=== PATIENT | male | born 1960 | race Two or more races ===

== ENCOUNTER 2018-09-29 08:24 | Emergency (ER) | payer OTHER ==
[~2018-09-29] VITALS: Ht 177.8 cm; Wt 117.9 kg
[2018-09-29 08:35] VITALS: Ht 177.8 cm; Wt 117.9 kg
[2018-09-29 09:26] LABS: PLATELET COUNT 152 x10^3mcL (130-400)
[2018-09-29 09:40] LABS: ALKALINE PHOSPHATASE 281 U/L (46-116); ALT/SGPT 53 U/L (16-63); AST/SGOT 163 U/L (15-37); BILIRUBIN TOTAL 3.05 mg/dL (0.20-1.00); CALCIUM 8.9 mg/dL (8.5-10.1); CARBON DIOXIDE 23.1 mmol/L (21-32); CHLORIDE SERUM 101 mmol/L (98-107); CREATININE SERUM 0.9 mg/dL (0.7-1.3); GFR1 > 60 mL/min; GLUCOSE SERUM 118 mg/dL (74-106); SODIUM SERUM 138 mmol/L (136-145)
[2018-09-29 09:42] LABS: ALBUMIN 3.1 g/dL (3.4-5.0); TOTAL PROTEIN, SERUM 9.5 g/dL (6.4-8.2)
[2018-09-29 09:44] LABS: POTASSIUM SERUM 2.8 mmol/L (3.5-5.1)
[2018-09-29 10:28] LABS: BAND NEUTROPHIL 1 % (0-10); BASOPHIL 1 % (0-2); MONOCYTE 9 % (0-7); SEGMENTED NEUTROPHILS 78 % (37-75)
[2018-09-29 10:29] LABS: PLATELET MORPHOLOGY PLATELETS DECREASED; rbc morphology (normal/abnorm) ABNORMAL (NORMAL)
[2018-09-29 11:03] VITALS: BP 145/97
== END 2018-09-29 11:23 | disposition home or self-care (01) ==
LOC: ED 08:24
PROVIDERS: Emergency Medicine
DX: F10.239 Alcohol dependence with withdrawal, unspecified (principal); K52.9 Noninfective gastroenteritis and colitis, unspecified
CPT/HCPCS: 83880; J1885; J2060; J7030; Q0092